=== PATIENT | female | born 1985 | race Two or more races ===

== ENCOUNTER 2016-06-16 09:29 | Emergency (ER) | payer OTHER, BC ==
--- NOTE | 2016-06-16 11:06 | EDDOCDS ---
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 Suicide/Homicide risk assessment- the patient denies having any suicidal and/or homicidal ideations and does not present with any other emotional, behavioral or mental health complaints. Status: Patient is not a vice president of customer service or dependent. Transition of care: patient was not received from another setting of care. Care prior to arrival: See EMS report. Splint applied. 09:33 Acuity: PEDRO Level 4 [facility] 09:33 Method Of Arrival: Ambulance [facility] 11:04 Adult Sepsis Screening: The patient does not have new or worsening altered mentation. js13 Patient's respiratory rate is less than 22. Systolic blood pressure is greater than 100. Patient has a qSOFA score of 0- Negative Sepsis Screen. Triage Assessment: 09:36 General: Appears in no apparent distress, comfortable, Behavior is appropriate for age, js13 cooperative. Pain: Location: left knee Pain currently is 6 out of 10 on a pain scale. Pt Declines HIV testing. Neurological: Level of Consciousness is awake, alert. Respiratory: No deficits noted. Airway is patent Respiratory effort is even, unlabored, Respiratory pattern is regular, symmetrical. Derm: Skin is pink, warm & dry. Musculoskeletal: Circulation, motion, and sensation intact No deformity noted Swelling absent. 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 none - PMHx: none; - PSHx: R foot partially amputated from lawnmower accident age 3; breast augmentation w/implants; - Social history: Smoking status: Patient states was never smoker of tobacco. No barriers to communication noted, The patient speaks fluent [place] Island[place]. - Family history: Not pertinent. - : The pt / caregiver states he / she is not on anticoagulants. Home medication list is obtained from the patient. - Exposure Risk Screening:: None identified. Screenin:37 Screening information is obtained from the patient. Fall risk: No risks identified. js13 Assistance ADL's: requires no assistance with activities of daily living. Abuse/DV Screen: The patient / caregiver reports he/she is: not in a situation that causes fear, pain or injury. Nutritional screening: No deficits noted. Advance Directives: There is no active DNR order. home support is adequate. Assessment: 11:03 General: Appears in no apparent distress, comfortable, Behavior is appropriate for age, js13 cooperative. Pain: Location: left knee Pain currently is 4 out of 10 on a pain scale. Neurological: Level of Consciousness is awake, alert. Respiratory: Airway is patent Respiratory effort is even, unlabored, Respiratory pattern is regular. Derm: Skin is pink, warm & dry. Vital Signs: 09:36 BP 149 / 71; Pulse 93; Resp 18; Temp 97.1; Pulse Ox 99% on R/A; Weight 104.33 kg; pml Height 5 ft. 9 in. (175.26 cm); Pain 6/10; 10:49 BP 113 / 66 RA Sitting (auto/lg); Pulse 67; Resp 18; Temp 98.5(O); Pulse Ox 98% on R/A; rs6 Pain 5/10; 09:36 Body Mass Index 33.96 (104.33 kg, 175.26 cm) pml Vitals: 09:36 Log In Time N/A - ambulance arrival. pml 09:36 Log In Time N/A - ambulance arrival. js13 ED Course: 09:29 Patient visited by Lisbet Estrada, Merchandising Intern. lbd 09:29 Patient moved to Waiting lbd 09:30 Brigid Gonzalez MD is Private Physician. lbd 09:30 Patient moved to I1 / M1 srm 09:33 [facility] is [facility]. btw 09:33 Mic Forde MD is Attending Physician. btw 09:33 Patient visited by Fede Pandey PA. btw 09:35 Triage Initiated js13 09:37 The patient / caregiver is instructed regarding the plan of care and ED course. js13 09:37 No IV's were initiated during this patient's visit. No procedures done that require js13 assistance. 09:38 Patient visited by Erika Tran RN. js13 09:59 Patient name changed from Deidrea\\S\\F\\S\\Raymond\\S\\ to Deidrea\\S\\Leny\\S\\Raymond. EDMS 10:01 [facility] Payment Agreement was scanned into [employer] and attached to record. lg 10:49 Knee immobilizer applied on left knee. Patient with positive distal sensation and brisk rs6 distal capillary refill after application. 10:50 Patient visited by Rufina Oates PCA. rs6 [facility] btw 11:03 Crutch training done. Knee immobilizer applied on left knee. Patient with positive js13 distal sensation and brisk distal capillary refill after application. Order Results: There are currently no results for this order. Outcome: 10:57 Discharge ordered by Provider. btw 11:03 Discharge Assessment: Patient awake, alert and oriented x 3. No cognitive and/or js13 functional deficits noted. Patient verbalized understanding of disposition instructions. patient administered narcotics - no. The following High Risk Discharge criteria are identified: None. Discharged to home ambulatory, with crutches, with family. Condition: stable. Discharge instructions given to patient, Instructed on discharge instructions, follow up and referral plans. medication usage, Rest, Ice, Compression and Elevation. crutch walking, Demonstrated understanding of instructions, crutch walking, medications, Pt was receptive of discharge instructions/ teaching. No special radiology studies were completed. Property :Personal belongings accompany Pt. 11:04 Patient left the ED. js13 Signatures: Dispatcher [employer] EDMS Lisbet Estrada, Merchandising Intern Unit lbd Carolina Pickett, RN LAUREN [facility] Megan Richardson, Reg Reg lg Fede Pandey PA PA btw Aleena Brown RN RN pml Sullivan, Jennifer, RN RN js Rufina Oates PCA PCA rs6 MTDD
--- NOTE | 2016-06-16 11:06 | EDDOCDS ---
Physician Documentation [facility] Name: Andreas Raymond Age: 30 yrs Sex: Female : 1985 Arrival Date: 06/16/2016 Time: 09:29 Bed I1 / M1 Private MD: Brigid Gonzalez Disposition: 06/16/16 10:57 Discharged to Home/Self Care. Impression: Sprain of other specified parts of left knee. - Condition is Stable. - Discharge Instructions: Knee Sprain, [id number]. - Medication Reconciliation, Local Pharmacy Hours form. - Follow up: Orthopaedics, [facility]; When: Call to arrange an appointment; Reason: Further diagnostic work-up, Recheck today's complaints, Continuance of care. - Problem is new. - Symptoms are unchanged. Historical: - Allergies: No known drug Allergies; - Home Meds: 1. none - PMHx: none; - PSHx: R foot partially amputated from lawnmower accident age 3; breast augmentation w/implants; - Social history: Smoking status: Patient states was never smoker of tobacco. No barriers to communication noted, The patient speaks fluent Grenadian. - Family history: Not pertinent. - : The pt / caregiver states he / she is not on anticoagulants. Home medication list is obtained from the patient. - Exposure Risk Screening:: None identified. 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 9 in. (175.26 cm); Pain 6/10; 10:49 BP 113 / 66 RA Sitting (auto/lg); Pulse 67; Resp 18; Temp 98.5(O); Pulse Ox 98% on R/A; rs6 Pain 5/10; 09:36 Body Mass Index 33.96 (104.33 kg, 175.26 cm) pml MDM: 09:38 Knee, Complete Ordered. EDMS 09:49 Financial registration complete. lg 10:01 [facility] Payment Agreement was scanned into [employer] and attached to record. lg 10:38 Knee Immobilizer ordered. btw 10:38 Crutches ordered. btw Signatures: Dispatcher [employer] EDMegan Taylor, Reg Reg lg Fede Pandey PA PA btw Erika Tran RN RN js13 The chart was reviewed and I authenticate all verbal orders and agree with the evaluation and treatment provided.Attachments: 10:01 [facility] Payment Agreement lg MTDD
--- NOTE | 2016-06-16 11:06 | REP ---
LEFT KNEE, FIVE VIEWS: HISTORY: Trauma. COMPARISON: 01/14/2016. There is no acute fracture or dislocation. The joint spaces are normal in appearance. IMPRESSION: There is no acute fracture or dislocation. Signed by Nikhil Jacobson MD 06/16/2016 11:26 A
--- NOTE | 2016-06-18 12:06 | EDDOCDS ---
Physician Documentation [facility] Name: Andreas Raymond Age: 30 yrs Sex: Female : 1985 Arrival Date: 06/16/2016 Time: 09:29 Bed I1 / M1 Private MD: Brigid Gonzalez Disposition: 06/16/16 10:57 Discharged to Home/Self Care. Impression: Sprain of other specified parts of left knee. - Condition is Stable. - Discharge Instructions: Knee Sprain, [id number]. - Medication Reconciliation, Local Pharmacy Hours form. - Follow up: Orthopaedics, [facility]; When: Call to arrange an appointment; Reason: Further diagnostic work-up, Recheck today's complaints, Continuance of care. - Problem is new. - Symptoms are unchanged. Historical: - Allergies: No known drug Allergies; - Home Meds: 1. none - PMHx: none; - PSHx: R foot partially amputated from lawnmower accident age 3; breast augmentation w/implants; - Social history: Smoking status: Patient states was never smoker of tobacco. No barriers to communication noted, The patient speaks fluent Canadian. - Family history: Not pertinent. - : The pt / caregiver states he / she is not on anticoagulants. Home medication list is obtained from the patient. - Exposure Risk Screening:: None identified. RAILROAD AUDITOR: 06/16 09:36 LMP 06/09/2016 pml 09:36 LMP 06/14/2015 js13 Vital Signs: 09:36 BP 149 / 71; Pulse 93; Resp 18; Temp 97.1; Pulse Ox 99% on R/A; Weight 104.33 kg / pml 230.01 lbs; Height 5 ft. 9 in. (175.26 cm); Pain 6/10; 10:49 BP 113 / 66 RA Sitting (auto/lg); Pulse 67; Resp 18; Temp 98.5(O); Pulse Ox 98% on R/A; rs6 Pain 5/10; 09:36 Body Mass Index 33.96 (104.33 kg, 175.26 cm) pml MDM: 09:38 Knee, Complete Ordered. EDMS 09:49 Financial registration complete. lg 10:01 [facility] Payment Agreement was scanned into [employer] and attached to record. lg 10:38 Knee Immobilizer ordered. btw 10:38 Crutches ordered. btw 06/17 09:36 T-Sheet-- Draft Copy was scanned into [employer] and attached to record. gb Signatures: Dispatcher [employer] EDMS Jacklyn Walter, Reg Reg gb Megan Richardson, Reg Reg lg Fede Pandey PA PA btw Erika Tran,RN RN js13 The chart was reviewed and I authenticate all verbal orders and agree with the evaluation and treatment provided.Attachments: 06/16 10:01 [facility] Payment Agreement lg 06/17 09:36 T-Sheet-- Draft Copy gb Chart Complete MTDD
--- NOTE | 2016-06-18 12:06 | EDDOCDS ---
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 and js13 slipped and felt a "pop" in left knee. Suicide/Homicide risk assessment- the patient denies having any suicidal and/or homicidal ideations and does not present with any other emotional, behavioral or mental health complaints. Status: Patient is not a conference services coordinator or dependent. Transition of care: patient was not received from another setting of care. Care prior to arrival: See EMS report. Splint applied. 09:33 Acuity: PEDRO Level 4 [facility] 09:33 Method Of Arrival: Ambulance [facility] 11:04 Adult Sepsis Screening: The patient does not have new or worsening altered mentation. js13 Patient's respiratory rate is less than 22. Systolic blood pressure is greater than 100. Patient has a qSOFA score of 0- Negative Sepsis Screen. Triage Assessment: 09:36 General: Appears in no apparent distress, comfortable, Behavior is appropriate for age, js13 cooperative. Pain: Location: left knee Pain currently is 6 out of 10 on a pain scale. Pt Declines HIV testing. Neurological: Level of Consciousness is awake, alert. Respiratory: No deficits noted. Airway is patent Respiratory effort is even, unlabored, Respiratory pattern is regular, symmetrical. Derm: Skin is pink, warm & dry. Musculoskeletal: Circulation, motion, and sensation intact No deformity noted Swelling absent. 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 none - PMHx: none; - PSHx: R foot partially amputated from lawnmower accident age 3; breast augmentation w/implants; - Social history: Smoking status: Patient states was never smoker of tobacco. No barriers to communication noted, The patient speaks fluent Romanian. - Family history: Not pertinent. - : The pt / caregiver states he / she is not on anticoagulants. Home medication list is obtained from the patient. - Exposure Risk Screening:: None identified. Screenin:37 Screening information is obtained from the patient. Fall risk: No risks identified. js13 Assistance ADL's: requires no assistance with activities of daily living. Abuse/DV Screen: The patient / caregiver reports he/she is: not in a situation that causes fear, pain or injury. Nutritional screening: No deficits noted. Advance Directives: There is no active DNR order. home support is adequate. Assessment: 11:03 General: Appears in no apparent distress, comfortable, Behavior is appropriate for age, js13 cooperative. Pain: Location: left knee Pain currently is 4 out of 10 on a pain scale. Neurological: Level of Consciousness is awake, alert. Respiratory: Airway is patent Respiratory effort is even, unlabored, Respiratory pattern is regular. Derm: Skin is pink, warm & dry. Vital Signs: 09:36 BP 149 / 71; Pulse 93; Resp 18; Temp 97.1; Pulse Ox 99% on R/A; Weight 104.33 kg; pml Height 5 ft. 9 in. (175.26 cm); Pain 6/10; 10:49 BP 113 / 66 RA Sitting (auto/lg); Pulse 67; Resp 18; Temp 98.5(O); Pulse Ox 98% on R/A; rs6 Pain 5/10; 09:36 Body Mass Index 33.96 (104.33 kg, 175.26 cm) pml Vitals: 09:36 Log In Time N/A - ambulance arrival. pml 09:36 Log In Time N/A - ambulance arrival. js13 ED Course: 09:29 Patient visited by Lisbet Estrada, Technology Specialist. lbd 09:29 Patient moved to Waiting lbd 09:30 Brigid Gonzalez MD is Private Physician. lbd 09:30 Patient moved to I1 / M1 srm 09:33 [facility]. btw 09:33 Mic Forde MD is Attending Physician. btw 09:33 Patient visited by Fede Pandey PA. btw 09:35 Triage Initiated js13 09:37 The patient / caregiver is instructed regarding the plan of care and ED course. js13 09:37 No IV's were initiated during this patient's visit. No procedures done that require js13 assistance. 09:38 Patient visited by Erika Tran RN. js13 09:59 Patient name changed from Deherlindarea\\S\\F\\S\\Raymond\\S\\ to Deidrea\\S\\Leny\\S\\Raymond. EDMS 10:01 [facility] Payment Agreement was scanned into [employer] and attached to record. lg 10:49 Knee immobilizer applied on left knee. Patient with positive distal sensation and brisk rs6 distal capillary refill after application. 10:50 Patient visited by Rufina Oates PCA. rs6 10:[facility]. btw 11:03 Crutch training done. Knee immobilizer applied on left knee. Patient with positive js13 distal sensation and brisk distal capillary refill after application. 11:14 Knee, Complete Returned. EDMS 06/17 09:36 T-Sheet-- Draft Copy was scanned into [employer] and attached to record. gb Order Results: Radiology Order: Knee, Complete Test: Knee, Complete REASON FOR EXAMINATION: Trauma; LEFT KNEE, FIVE VIEWS:; ; HISTORY: Trauma.; ; COMPARISON: 01/14/2016.; ; There is no acute fracture or dislocation. The joint spaces are normal in; appearance.; ; IMPRESSION:; ; There is no acute fracture or dislocation.; ; ; Signed by; Nikhil Jacobson MD 06/16/2016 11:26 A; Outcome: 06/16 10:57 Discharge ordered by Provider. btw 11:03 Discharge Assessment: Patient awake, alert and oriented x 3. No cognitive and/or js13 functional deficits noted. Patient verbalized understanding of disposition instructions. patient administered narcotics - no. The following High Risk Discharge criteria are identified: None. Discharged to home ambulatory, with crutches, with family. Condition: stable. Discharge instructions given to patient, Instructed on discharge instructions, follow up and referral plans. medication usage, Rest, Ice, Compression and Elevation. crutch walking, Demonstrated understanding of instructions, crutch walking, medications, Pt was receptive of discharge instructions/ teaching. No special radiology studies were completed. Property :Personal belongings accompany Pt. 11:04 Patient left the ED. js13 Signatures: Dispatcher [employer] EDNV Lisbet Estrada, Technology Specialist Unit lbd Carolina Pickett RN RN srm Barnhardt, Gloria, Reg Reg gb Megan Richardson, Reg Reg lg Fede Pandey PA PA btw Aleena Brown,RN RN Erika So,RN RN js13 Lashon, Rufina, GEAR CUTTING MACHINE SET UP OPERATOR GEAR CUTTING MACHINE SET UP OPERATOR rs6 Chart Complete MTDD
--- NOTE | 2016-06-18 12:06 | EDDOCDS ---
Physician Documentation [facility] Name: Andreas Raymond Age: 30 yrs Sex: Female : 1985 Arrival Date: 06/16/2016 Time: 09:29 Bed I1 / M1 Private MD: Brigid Gonzalez Disposition: 06/16/16 10:57 Discharged to Home/Self Care. Impression: Sprain of other specified parts of left knee. - Condition is Stable. - Discharge Instructions: Knee Sprain, [id number]. - Medication Reconciliation, Local Pharmacy Hours form. - Follow up: Orthopaedics, [facility]; When: Call to arrange an appointment; Reason: Further diagnostic work-up, Recheck today's complaints, Continuance of care. - Problem is new. - Symptoms are unchanged. Historical: - Allergies: No known drug Allergies; - Home Meds: 1. none - PMHx: none; - PSHx: R foot partially amputated from lawnmower accident age 3; breast augmentation w/implants; - Social history: Smoking status: Patient states was never smoker of tobacco. No barriers to communication noted, The patient speaks fluent Prydeinig. - Family history: Not pertinent. - : The pt / caregiver states he / she is not on anticoagulants. Home medication list is obtained from the patient. - Exposure Risk Screening:: None identified. 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 9 in. (175.26 cm); Pain 6/10; 10:49 BP 113 / 66 RA Sitting (auto/lg); Pulse 67; Resp 18; Temp 98.5(O); Pulse Ox 98% on R/A; rs6 Pain 5/10; 09:36 Body Mass Index 33.96 (104.33 kg, 175.26 cm) pml MDM: 09:38 Knee, Complete Ordered. EDMS 09:49 Financial registration complete. lg 10:01 [facility] Payment Agreement was scanned into [employer] and attached to record. lg 10:38 Knee Immobilizer ordered. btw 10:38 Crutches ordered. btw 06/17 09:36 T-Sheet-- Draft Copy was scanned into [employer] and attached to record. gb Signatures: Dispatcher [employer] EDMS Jacklyn Walter, Reg Reg gb Megan Richarsdon, Reg Reg lg Fede Pandey PA PA btw Erika Tran,RN RN js13 The chart was reviewed and I authenticate all verbal orders and agree with the evaluation and treatment provided.Attachments: 06/16 10:01 [facility] Payment Agreement lg 06/17 09:36 T-Sheet-- Draft Copy gb Chart Complete MTDD
== END 2016-06-16 11:04 | disposition home or self-care (01) ==
LOC: M ED 09:29
DX: S83.92XA Sprain of unspecified site of left knee, initial encounter (principal); W00.9XXA Unspecified fall due to ice and snow, initial encounter; Y92.9 Unspecified place or not applicable; Y93.9 Activity, unspecified; Y99.0 Civilian activity done for income or pay

== ENCOUNTER → 2016-07-16 | Outpatient (REF) | payer OTHER, BC | LOC: M LAB REF 09:38 | PROVIDERS: ATTEND Physician Assistant | DX: N39.0 Urinary tract infection, site not specified (principal) ==

== ENCOUNTER → 2016-11-08 | Outpatient (CLI) | payer OTHER, BC ==
[2016-11-08 13:38] LABS: BASO # 0.1 K/mm3 (0.0-0.2); BASO % 0.6 % (0.0-1.0); EOS # 0.2 K/mm3 (0.0-0.50); EOS % 2.2 % (0.0-3.0); LARGE UNSTAINED CELL # 0.1 K/mm3 (0.0-0.4); LYMPH # 1.8 K/mm3 (1.5-4.5); LYMPH % 17.5 % (24.0-44.0); MEAN CORPUSCULAR HEMOGLOBIN 30.7 pg (27.0-33.0); MEAN CORPUSCULAR HGB CONC 33.8 g/dl (32.0-36.5); MEAN CORPUSCULAR VOLUME 90.6 fl (80.0-96.0); MONO # 0.6 K/mm3 (0.0-0.8); MONO % 5.5 % (0.0-5.0); NEUTROPHILS # 7.4 K/mm3 (1.8-7.7); NEUTROPHILS % 73.2 % (36.0-66.0); PLATELET COUNT, AUTOMATED 312 k/mm3 (150-450); RED CELL DISTRIBUTION WIDTH 12.6 % (11.5-14.5); WHITE BLOOD COUNT 10.1 K/mm3 (4.0-10.0)
[2016-11-08 13:44] LABS: ANION GAP 6 MEQ/L (8-16); BLOOD UREA NITROGEN 9 MG/DL (7-18); CALCIUM LEVEL 9.6 MG/DL (8.5-10.1); CARBON DIOXIDE LEVEL 30 MEQ/L (21-32); CHLORIDE LEVEL 106 MEQ/L (98-107); CREATININE FOR GFR 0.79 MG/DL (0.55-1.02); FREE T4 1.19 NG/DL (0.76-1.46); GLOMERULAR FILTRATION RATE > 60.0 (>60); GLUCOSE, FASTING 78 MG/DL (70-105); PERCENT SATURATION 16.5 % (13.2-37.4); POTASSIUM SERUM 4.3 MEQ/L (3.5-5.1); SODIUM LEVEL 142 MEQ/L (136-145); TOTAL IRON BINDING CAPACITY 370 UG/DL (250-450)
== END ==
LOC: M WUC 08:52
PROVIDERS: ATTEND Physician Assistant
DX: R53.83 Other fatigue (principal)

== ENCOUNTER → 2016-12-07 | Outpatient (REF) | payer OTHER, BC | LOC: M LAB REF 09:37 | PROVIDERS: ATTEND Physician Assistant | DX: J02.9 Acute pharyngitis, unspecified (principal) ==

== ENCOUNTER → 2017-02-26 | Outpatient (REF) | payer OTHER, BC | LOC: M LAB REF 09:46 | PROVIDERS: ATTEND Physician Assistant | DX: N39.0 Urinary tract infection, site not specified (principal) ==

== ENCOUNTER → 2017-05-04 | Outpatient (REF) | payer OTHER, BC | LOC: M LAB REF 19:32 | PROVIDERS: ATTEND Physician Assistant Medical | DX: N30.00 Acute cystitis without hematuria (principal) ==

== ENCOUNTER → 2017-05-11 | Outpatient (CLI) | payer OTHER, BC ==
[2017-05-11 09:29] LABS: BASO # 0.1 10^3/uL (0.0-0.2); BASO % 0.7 % (0.0-1.0); EOS # 0.3 10^3/uL (0.0-0.50); EOS % 2.9 % (0.0-3.0); IMMATURE GRANULOCYTE % 0.4 % (0-0); LYMPH # 1.9 10^3/uL (1.5-4.5); LYMPH % 20.3 % (24.0-44.0); MEAN CORPUSCULAR HEMOGLOBIN 29.2 pg (27.0-33.0); MEAN CORPUSCULAR HGB CONC 32.6 g/dl (32.0-36.5); MEAN CORPUSCULAR VOLUME 89.8 fl (80.0-96.0); MONO # 0.7 10^3/uL (0.0-0.8); MONO % 7.4 % (0.0-5.0); NEUTROPHILS # 6.4 10^3/uL (1.8-7.7); NEUTROPHILS % 68.3 % (36.0-66.0); PLATELET COUNT, AUTOMATED 422 10^3/uL (150-450); RED CELL DISTRIBUTION WIDTH 13.2 % (11.5-14.5); WHITE BLOOD COUNT 9.4 10^3/uL (4.0-10.0)
[2017-05-11 10:07] LABS: ERYTHROCYTE SEDIMENTATION RATE 22 mm/hr (0-20)
[2017-05-11 11:01] LABS: ANION GAP 6 MEQ/L (8-16); BLOOD UREA NITROGEN 10 MG/DL (7-18); CALCIUM LEVEL 9.2 MG/DL (8.5-10.1); CARBON DIOXIDE LEVEL 32 MEQ/L (21-32); CHLORIDE LEVEL 104 MEQ/L (98-107); CREATININE FOR GFR 0.72 MG/DL (0.55-1.02); GLOMERULAR FILTRATION RATE > 60.0 (>60); GLUCOSE, FASTING 84 MG/DL (70-105); POTASSIUM SERUM 4.2 MEQ/L (3.5-5.1); SODIUM LEVEL 142 MEQ/L (136-145)
[2017-05-15 00:08] LABS: Lyme Disease IgG Ab 18 kDa Ban Absent (.); Lyme Disease IgG Ab 23 kDa Ban Absent (.); Lyme Disease IgG Ab 28 kDa Ban Absent (.); Lyme Disease IgG Ab 30 kDa Ban Absent (.); Lyme Disease IgG Ab 39 kDa Ban Absent (.); Lyme Disease IgG Ab 41 kDa Ban Absent (.); Lyme Disease IgG Ab 45 kDa Ban Absent (.); Lyme Disease IgG Ab 58 kDa Ban Absent (.); Lyme Disease IgG Ab 66 kDa Ban Absent (.); Lyme Disease IgG Ab 93 kDa Ban Absent (.); Lyme Disease IgG West Blot Int Negative (.); Lyme Disease IgG/IgM Antibodie <0.91 ISR (0.00-0.90); Lyme Disease IgM Ab 23 kDa Ban Absent (.); Lyme Disease IgM Ab 39 kDa Ban Absent (.); Lyme Disease IgM Ab 41 kDa Ban Absent (.); Lyme Disease IgM Ab Quantitati 0.86 index (0.00-0.79); Lyme Disease IgM West Blot Int Negative (.)
== END ==
LOC: M WUC 08:18
PROVIDERS: ATTEND Physician Assistant Medical
DX: M25.50 Pain in unspecified joint (principal)

== ENCOUNTER → 2017-07-13 | Outpatient (CLI) | payer OTHER, BC | LOC: M WUC 16:17 | DX: M54.5 Low back pain (principal); M25.551 Pain in right hip | CPT/HCPCS: 72110 ==

== ENCOUNTER → 2017-07-31 | Outpatient (REF) | payer OTHER, BC | LOC: M LAB REF 14:41 | DX: Z01.419 Encounter for gynecological examination (general) (routine) without abnormal findings (principal) ==

== ENCOUNTER → 2017-08-23 | Outpatient (REF) | payer OTHER, BC | LOC: M LAB REF 19:17 | DX: N39.0 Urinary tract infection, site not specified (principal) ==

== ENCOUNTER → 2018-01-06 | Outpatient (CLI) | payer OTHER, BC | LOC: M WUC 10:31 | DX: M25.531 Pain in right wrist (principal) | CPT/HCPCS: 73110 ==

== ENCOUNTER → 2018-02-05 | Outpatient (REF) | payer OTHER, BC | LOC: M LAB REF 12:38 | DX: N39.0 Urinary tract infection, site not specified (principal) ==

== ENCOUNTER → 2018-02-26 | Outpatient (REF) | payer BC | LOC: M LAB REF 11:50 | DX: M54.5 Low back pain (principal) | CPT/HCPCS: 87086 ==

== ENCOUNTER → 2018-05-21 | Outpatient (CLI) | payer BC ==
[2018-05-21 13:08] LABS: GLUCOSE, FASTING 91 MG/DL (70-100)
[2018-05-21 13:09] LABS: LUTEINIZING HORMONE 50.6 mIU/mL; PROLACTIN 12.9 NG/ML
[2018-05-21 13:10] LABS: FOLLICLE STIMULATING HORMONE 10.7 mIU/mL
[2018-05-21 13:44] LABS: CONTROL LINE HCG INT CTR LINE PRESENT; HCG, SERUM QUALITATIVE NEGATIVE (NEGATIVE)
[2018-05-25 08:06] LABS: 17 HYDROXY PROGESTERONE 113 ng/dL (.); DEHYDROEPIANDROSTERONE SULFATE 407.9 ug/dL (84.8-378.0); INSULIN FREE 17 uU/mL (.); INSULIN TOTAL2 17 uU/mL (.)
== END ==
LOC: M WUC 08:40
DX: L68.0 Hirsutism (principal)
CPT/HCPCS: 83001

== ENCOUNTER → 2018-07-21 | Outpatient (REF) | payer BC | LOC: M LAB REF 18:21 | PROVIDERS: ATTEND Physician Assistant Medical | DX: J02.9 Acute pharyngitis, unspecified (principal) ==

== ENCOUNTER 2018-10-08 07:59 | Emergency (ER) | payer BC ==
[~2018-10-08] VITALS: Ht 175.3 cm; Wt 122.8 kg
[2018-10-08] MEDS ORDERED: SERT-155 (08:07)
--- NOTE | 2018-10-08 09:09 | REP ---
Right lower extremity Duplex Doppler venous ultrasound: Real time compression and duplex Doppler interrogation of the right lower extremity deep venous system is performed. The right common femoral, superficial femoral and popliteal veins are fully compressible with transducer pressure and demonstrate normal spontaneous and phasic flow, without evidence of deep venous thrombosis. Impression: No evidence of deep venous thrombosis of the right lower extremity femoral popliteal venous system. Electronically Signed by Jung Joshi MD 10/08/2018 09:00 A
[2018-10-08] MEDS ORDERED: PYRI1TAB5 PO (09:12)
[2018-10-08] MEDS ORDERED: CYCL10TA PO (09:12)
[2018-10-08] MEDS ORDERED: CIPR-249 PO (09:12)
[2018-10-08] MEDS ORDERED: MOBI4TAB PO (09:12)
[2018-10-08] MEDS ORDERED: NITROFURANTOIN (MACROBID) 100 MG CAP PO ONE (09:15)
[2018-10-08] MEDS ORDERED: CIPROFLOXACIN 500 MG TAB PO ONE (09:15)
[2018-10-08] MEDS ORDERED: PHENAZOPYRIDINE 100 MG TAB PO ONE (09:15)
[2018-10-08 09:17] VITALS: BP 139/82
== END 2018-10-08 09:21 | disposition home or self-care (01) ==
LOC: M ED 07:59
DX: M79.661 Pain in right lower leg (principal); N39.0 Urinary tract infection, site not specified; Z79.899 Other long term (current) drug therapy

== ENCOUNTER → 2019-05-13 | Outpatient (REF) | payer BC ==
[~2019-05-13] MED LIST: CIPR-249 PO; CYCL10TA PO; MOBI4TAB PO; PYRI1TAB5 PO; SERT50TA29
== END ==
LOC: M LAB REF 12:59
PROVIDERS: ATTEND Family Medicine
DX: R35.0 Frequency of micturition (principal)

== ENCOUNTER → 2019-05-26 | Outpatient (REF) | payer BC ==
[2019-05-26 13:35] LABS: AMORPHOUS SEDIMENT MODERATE (NEGATIVE); APPEARANCE, URINE CLOUDY (CLEAR); BACTERIA, URINE AUTO 1+ (NEGATIVE); BILIRUBIN, URINE AUTO NEGATIVE (NEGATIVE); BLOOD, URINE BLOOD NEGATIVE (NEGATIVE); CALCIUM OXALATE CRYSTALS LARGE; COLOR, URINE AMBER (YELLOW); GLUCOSE, URINE (UA) AUTO NEGATIVE (NEGATIVE); KETONE, URINE AUTO NEGATIVE (NEGATIVE); LEUKOCYTE ESTERASE, URINE AUTO 1+ (NEGATIVE); MUCUS, URINE SMALL (NEGATIVE); NITRITE, URINE AUTO POSITIVE (NEGATIVE); PROTEIN, URINE AUTO NEGATIVE (NEGATIVE); RBC, URINE AUTO 4 /HPF (0-3); SPECIFIC GRAVITY URINE AUTO 1.028 (1.002-1.035); SQUAMOUS EPITHELIAL CELL UR AU 10 /HPF (0-6); WBC, URINE AUTO 24 /HPF (0-3)
== END ==
LOC: M LAB REF 12:58
PROVIDERS: ATTEND Physician Assistant Medical
DX: N39.0 Urinary tract infection, site not specified (principal)

== ENCOUNTER → 2019-06-27 | Outpatient (REF) | payer BC | LOC: M LAB REF 12:58 | PROVIDERS: ATTEND Nurse Practitioner Family | DX: N39.0 Urinary tract infection, site not specified (principal) ==

== ENCOUNTER → 2019-11-20 | Outpatient (REF) | payer BC ==
[~2019-11-20] MED LIST changes: +CYCL-707 PO; -CYCL10TA PO
== END ==
LOC: M LAB REF 16:44
PROVIDERS: ATTEND Internal Medicine Endocrinology, Diabetes & Metabolism
DX: E04.1 Nontoxic single thyroid nodule (principal)

== ENCOUNTER 2020-01-31 18:09 | Emergency (ER) | payer BC ==
[~2020-01-31] VITALS: Ht 175.3 cm; Wt 112.0 kg
[2020-01-31] MEDS ORDERED: ACET-683 PO (18:17)
[2020-01-31 19:19] LABS: BASO # 0.1 10^3/uL (0.0-0.2); BASO % 0.8 % (0.0-1.0); EOS # 0.2 10^3/uL (0.0-0.5); HEMATOCRIT 43.1 % (36.0-47.0); HEMOGLOBIN 14.5 g/dl (12.0-15.5); LYMPH # 2.9 10^3/uL (1.5-5.0); LYMPH % 25.2 % (24.0-44.0); MEAN CORPUSCULAR HEMOGLOBIN 30.1 pg (27.0-33.0); MEAN CORPUSCULAR HGB CONC 33.6 g/dl (32.0-36.5); MEAN CORPUSCULAR VOLUME 89.4 fl (80.0-96.0); MONO # 0.9 10^3/uL (0.0-0.8); MONO % 8.3 % (0.0-5.0); NEUTROPHILS # 7.2 10^3/uL (1.5-8.5); NEUTROPHILS % 63.4 % (36.0-66.0); PLATELET COUNT, AUTOMATED 381 10^3/uL (150-450); RED BLOOD COUNT 4.82 10^6/uL (4.00-5.40); WHITE BLOOD COUNT 11.3 10^3/uL (4.0-10.0)
[2020-01-31] MEDS ORDERED: ISOVUE-370 76% 100ML VIAL As Ordered ONE (19:48)
[2020-01-31 19:51] LABS: ALBUMIN 3.7 GM/DL (3.2-5.2); ALT/SGPT 22 U/L (12-78); BILIRUBIN,DIRECT < 0.1 MG/DL (0.0-0.2); BILIRUBIN,TOTAL 0.4 MG/DL (0.2-1.0); LIPASE 90 U/L (73-393); TOTAL PROTEIN 7.7 GM/DL (6.4-8.2)
--- NOTE | 2020-01-31 20:43 | REPVR ---
PROCEDURE INFORMATION: Exam: CT Abdomen And Pelvis With Contrast Exam date and time: 01/31/2020 8:07 PM Age: 34 years old Clinical indication: Abdominal pain; Localized; Right lower quadrant (rlq); Additional info: Rlq pain R/O appendicitis TECHNIQUE: Imaging protocol: Computed tomography of the abdomen and pelvis with intravenous contrast. Radiation optimization: All CT scans at this facility use at least one of these dose optimization techniques: automated exposure control; mA and/or kV adjustment per patient size (includes targeted exams where dose is matched to clinical indication); or iterative reconstruction. Contrast material: ISOVUE 370; Contrast volume: 100 ml; Contrast route: INTRAVENOUS (IV); COMPARISON: CR Pelvis, complete 11/16/2013 9:27 PM FINDINGS: Lungs: No suspicious mass or airspace process in the visualized lung bases. Mediastinal space: Small hiatal hernia is present. Liver: Liver appears normal with no focal abnormality. Gallbladder and bile ducts: Gallbladder is present and shows no evidence of gallstone. Pancreas: Pancreas appears normal. No focal mass or peripancreatic inflammation. Spleen: Spleen appears homogeneous without focal mass. Adrenals: Left adrenal is normal in size. Right adrenal demonstrates a benign 13 mm fat containing adenoma. Kidneys and ureters: Kidneys appear normal, with no stone, solid mass or hydronephrosis. Stomach and bowel: No evidence of small bowel obstruction. Terminal ileum has normal appearance. No evidence of acute diverticulitis. Appendix: Normal-appearing retrocecal appendix is identified, without inflammation. Intraperitoneal space: No pneumoperitoneum. Vasculature: No aortic aneurysm. Main portal and splenic veins enhance normally. Lymph nodes: No enlarged lymph nodes. Bladder: Urinary bladder appears normal. Reproductive: Left ovarian 5 cm fat containing mature cystic teratoma is present. Right ovarian cyst measuring 15 mm. Bones/joints: Bony structures show no acute fracture or destructive process. Soft tissues: Bilateral breast implants are present. No effacement of normal fat planes in the ischiorectal fossa. IMPRESSION: 1. Normal retrocecal appendix. No evidence of acute appendicitis. No explanation for acute right lower quadrant pain. Small 15 mm right ovarian cyst is of functional size and likely incidental 2. 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 No evidence of rupture. 3. Prominent colonic stool, particularly on the right side suggesting perhaps mild constipation without rectal fecal impaction Electronically signed by: Geronimo Rai On 01/31/2020 20:43:40 PM
--- NOTE | 2020-01-31 21:33 | REPVR ---
PROCEDURE INFORMATION: Exam: US Nonobstetric Pelvis; Complete Exam date and time: 01/31/2020 9:05 PM Age: 34 years old Clinical indication: Pain and abnormal findings; Mass/lesion; Lower quadrant, left; Pelvic pain; Additional info: Left ovarian cyst on CT, R/O torsion TECHNIQUE: Imaging protocol: Transabdominal pelvic nonobstetric ultrasound. Complete exam. Real time ultrasound with image documentation. COMPARISON: CT ABD/PEL W/IV CONTRAST ONLY 01/31/2020 7:58 PM FINDINGS: Uterus measures 9.5 x 4.8 x 6.1 cm in size, anteverted in position. No focal uterine mass. Endometrial stripe appears homogeneous, measuring 18 mm in thickness. Right ovary measures 3.1 x 2.3 x 3.4 cm in size. 19 mm follicle or cyst. Left ovary measures 5.6 x 5.4 x 4.7 cm in size. Mature cystic teratoma 5.6 x 5.4 x 4.7 cm. Doppler flow is documented in both ovaries. No abnormal volume of free fluid within the pelvis. 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 No evidence of torsion. Incidental 19 mm right ovarian cyst/follicle, also described on CT. No evidence of torsion. Prominent endometrium, likely related to menstrual phase. Electronically signed by: Geronimo Rai On 01/31/2020 21:33:47 PM
[2020-01-31] MEDS ORDERED: KEFL500C17 PO (21:42)
[2020-01-31 21:51] VITALS: BP 126/82
== END 2020-01-31 21:51 | disposition home or self-care (01) ==
LOC: M ED 18:09
DX: N39.0 Urinary tract infection, site not specified (principal); N83.209 Unspecified ovarian cyst, unspecified side; E04.1 Nontoxic single thyroid nodule
CPT/HCPCS: 36415; 74177; 76830; 76856; 80047; 80076; 81001; 83690; 84702; 85025; 87086; 93976; 99284; Q9967

== ENCOUNTER → 2020-05-17 | Outpatient (REF) | payer BC ==
[~2020-05-17] MED LIST changes: +ACET-683 PO; +KEFL500C17 PO
== END ==
LOC: M LAB REF 17:22
PROVIDERS: ATTEND Nurse Practitioner Family
DX: R35.0 Frequency of micturition (principal); N39.0 Urinary tract infection, site not specified

== ENCOUNTER → 2020-06-17 | Outpatient (REF) | payer BC ==
[2020-06-18 16:03] LABS: CHLAMYDIA DNA AMPLIFICATION NEGATIVE (NEGATIVE); GC DNA AMPLIFICATION NEGATIVE (NEGATIVE)
== END ==
LOC: M LAB REF 12:42
PROVIDERS: ATTEND Nurse Practitioner Family
DX: Z12.4 Encounter for screening for malignant neoplasm of cervix (principal); N76.0 Acute vaginitis; R35.0 Frequency of micturition; N39.0 Urinary tract infection, site not specified
CPT/HCPCS: 87070; 87077; 87086; 87491; 87591; 87624; G0123

== ENCOUNTER → 2020-06-25 | Outpatient (REF) | payer BC | LOC: M LAB REF 13:16 | PROVIDERS: ATTEND Nurse Practitioner Family | DX: R35.0 Frequency of micturition (principal) ==

== ENCOUNTER → 2020-07-05 | Outpatient (REF) | payer BC ==
[2020-07-05 17:00] LABS: APPEARANCE, URINE CLOUDY (CLEAR); BACTERIA, URINE AUTO NEGATIVE (NEGATIVE); BILIRUBIN, URINE AUTO NEGATIVE (NEGATIVE); BLOOD, URINE BLOOD 1+ (NEGATIVE); COLOR, URINE YELLOW (YELLOW); GLUCOSE, URINE (UA) AUTO NEGATIVE (NEGATIVE); KETONE, URINE AUTO NEGATIVE (NEGATIVE); LEUKOCYTE ESTERASE, URINE AUTO 3+ (NEGATIVE); MUCUS, URINE SMALL (NEGATIVE); NITRITE, URINE AUTO NEGATIVE (NEGATIVE); PROTEIN, URINE AUTO 1+ mg/dL (NEGATIVE); RBC, URINE AUTO 7 /HPF (0-3); SPECIFIC GRAVITY URINE AUTO 1.023 (1.002-1.035); SQUAMOUS EPITHELIAL CELL UR AU 11 /HPF (0-6); WBC, URINE AUTO 56 /HPF (0-3)
== END ==
LOC: M LAB REF 16:26
PROVIDERS: ATTEND Physician Assistant Medical
DX: N39.0 Urinary tract infection, site not specified (principal)

== ENCOUNTER → 2020-10-08 | Outpatient (REF) | payer BC ==
[2020-10-08 18:07] LABS: APPEARANCE, URINE CLOUDY (CLEAR); BACTERIA, URINE AUTO NEGATIVE (NEGATIVE); BILIRUBIN, URINE AUTO NEGATIVE (NEGATIVE); BLOOD, URINE BLOOD NEGATIVE (NEGATIVE); COLOR, URINE YELLOW (YELLOW); GLUCOSE, URINE (UA) AUTO NEGATIVE (NEGATIVE); KETONE, URINE AUTO NEGATIVE (NEGATIVE); LEUKOCYTE ESTERASE, URINE AUTO 3+ (NEGATIVE); NITRITE, URINE AUTO NEGATIVE (NEGATIVE); PROTEIN, URINE AUTO NEGATIVE (NEGATIVE); RBC, URINE AUTO 3 /HPF (0-3); SPECIFIC GRAVITY URINE AUTO 1.018 (1.002-1.035); SQUAMOUS EPITHELIAL CELL UR AU 6 /HPF (0-6); UROBILINOGEN, URINE AUTO 0.2 mg/dL (0.0-2.0); WBC, URINE AUTO 21 /HPF (0-3)
== END ==
LOC: M LAB REF 16:52
PROVIDERS: ATTEND Physician Assistant
DX: N39.0 Urinary tract infection, site not specified (principal)

== ENCOUNTER → 2020-10-25 | Outpatient (REF) | payer BC ==
[2020-10-25 18:33] LABS: BASO # 0.1 10^3/uL (0.0-0.2); BASO % 0.5 % (0.0-1.0); EOS # 0.2 10^3/uL (0.0-0.5); EOS % 1.5 % (0.0-3.0); HEMATOCRIT 44.3 % (36.0-47.0); LYMPH # 3.6 10^3/uL (1.5-5.0); MEAN CORPUSCULAR HEMOGLOBIN 29.2 pg (27.0-33.0); MEAN CORPUSCULAR HGB CONC 31.6 g/dl (32.0-36.5); MEAN CORPUSCULAR VOLUME 92.3 fl (80.0-96.0); MONO # 1.1 10^3/uL (0.0-0.8); NEUTROPHILS # 8.7 10^3/uL (1.5-8.5); NEUTROPHILS % 63.4 % (36.0-66.0); PLATELET COUNT, AUTOMATED 431 10^3/uL (150-450); WHITE BLOOD COUNT 13.8 10^3/uL (4.0-10.0)
[2020-10-25 19:06] LABS: ALBUMIN 3.5 GM/DL (3.2-5.2); ALT/SGPT 19 U/L (12-78); BILIRUBIN,TOTAL 0.3 MG/DL (0.2-1.0); BLOOD UREA NITROGEN 13 MG/DL (7-18); CALCIUM LEVEL 9.3 MG/DL (8.5-10.1); CARBON DIOXIDE LEVEL 33 MEQ/L (21-32); CHLORIDE LEVEL 107 MEQ/L (98-107); CHOLESTEROL LEVEL 197 MG/DL (<200); CHOLESTEROL RISK RATIO 3.581 (<5); FREE T4 1.25 NG/DL (0.76-1.46); GLOMERULAR FILTRATION RATE > 60.0 (>60); GLUCOSE, FASTING 89 MG/DL (70-100); HDL CHOLESTEROL 55 MG/DL (>40); LDL CHOLESTEROL 114 MG/DL (<100); NON-HDL-C 142 MG/DL; SODIUM LEVEL 141 MEQ/L (136-145); TOTAL PROTEIN 7.4 GM/DL (6.4-8.2); TRIGLYCERIDES LEVEL 142 MG/DL (<150)
== END ==
LOC: M SFHCADAM 11:55
PROVIDERS: ATTEND Physician Assistant Medical
DX: K21.9 Gastro-esophageal reflux disease without esophagitis (principal); E66.01 Morbid (severe) obesity due to excess calories; E03.9 Hypothyroidism, unspecified; D27.1 Benign neoplasm of left ovary

== ENCOUNTER → 2020-12-28 | Outpatient (CLI) | payer BC ==
--- NOTE | 2020-12-28 18:15 | REP ---
INDICATION: R KNEE PAIN COMPARISON: None. TECHNIQUE: Five views right knee. FINDINGS: There is no evidence of acute fracture, dislocation, or intrinsic bone disease.The joint spaces are unremarkable. IMPRESSION: Negative right knee series. <Electronically signed by Jung Joshi > 12/28/20 [id number]
== END ==
LOC: M RAD 17:34
PROVIDERS: ATTEND Physician Assistant Medical
DX: M25.561 Pain in right knee (principal)

== ENCOUNTER → 2021-03-09 | Outpatient (CLI) | payer BC ==
[~2021-03-09] MED LIST changes: +CETI10CH PO; +SERT50TA29 PO; +SYNT88TA2 PO
--- NOTE | 2021-03-12 10:14 | ECGEPIP ---
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 Electronically Signed on 03-12-2021 10:14:23 EDT by Aashish Billings
== END ==
LOC: M EKG 10:15
PROVIDERS: ATTEND Anesthesiology
DX: Z01.818 Encounter for other preprocedural examination (principal); E04.1 Nontoxic single thyroid nodule

== ENCOUNTER → 2021-03-09 | Outpatient (CLI) | payer BC ==
[~2021-03-09] MED LIST changes: -CETI10CH PO; -SERT50TA29 PO
== END ==
LOC: M LABSMTC 09:29
PROVIDERS: ATTEND Anesthesiology
DX: Z01.812 Encounter for preprocedural laboratory examination (principal)

== ENCOUNTER 2021-03-14 06:09 | Day surgery (SDC) | payer BC ==
[~2021-03-14] VITALS: Ht 177.8 cm; Wt 120.2 kg
[~2021-03-14 06:09] MED LIST changes: +LIDOCAINE 1% MDV 20ML VIAL SQ PRN
[2021-03-14] MEDS ORDERED: CETI10CH PO (06:39)
[2021-03-14] MEDS ORDERED: SERT50TA29 PO (06:39)
[2021-03-14 06:40] LABS: HEMOGLOBIN 13.6 g/dl (12.0-15.5); MEAN CORPUSCULAR HEMOGLOBIN 28.3 pg (27.0-33.0); MEAN CORPUSCULAR HGB CONC 32.4 g/dl (32.0-36.5); MEAN CORPUSCULAR VOLUME 87.5 fl (80.0-96.0); PLATELET COUNT, AUTOMATED 363 10^3/uL (150-450); WHITE BLOOD COUNT 9.8 10^3/uL (4.0-10.0)
[2021-03-14] MEDS ORDERED: MIDAZOLAM INJ 2MG/2ML VIAL (J2250 PER 1MG) As Ordered ONE (07:05)
[2021-03-14] MEDS ORDERED: fentaNYL 100 MCG/2 ML INJECTION (J3010) As Ordered ONE (07:06)
[2021-03-14] MEDS ORDERED: ROCURONIUM BROMIDE 50 MG/5 ML VIAL As Ordered ONE (07:07)
[2021-03-14] MEDS ORDERED: LIDOCAINE 2% 100MG/5ML SDV (FOR ANES.) As Ordered ONE (07:07)
[2021-03-14] MEDS ORDERED: ACETAMINOPHEN 1000MG 100ML IV BTL (OFIRMEV) (J0131 PER 10MG) As Ordered ONE (07:11)
[2021-03-14] MEDS ORDERED: BUPIVACAINE HCL 0.25% 30ML VIAL As Ordered ONE (07:13)
[2021-03-14] MEDS ORDERED: SCOPOLAMINE 1MG TRANSDERMAL PATCH TOP ONE (07:15)
[2021-03-14] MEDS ORDERED: LR 1,000 ML IV ONE (07:15)
[2021-03-14] MEDS ORDERED: ONDANSETRON 4MG/2ML VIAL As Ordered ONE (08:01)
[2021-03-14] MEDS ORDERED: dexameTHASONE 4 MG/ML 1ML VIAL (J1100 PER 1MG) As Ordered ONE (08:01)
[2021-03-14] MEDS ORDERED: propofoL 200 MG/20 ML VIAL As Ordered ONE (08:01)
[2021-03-14] MEDS ORDERED: KETOROLAC 60MG 2ML VIAL As Ordered ONE (08:02)
[2021-03-14] MEDS ORDERED: METOCLOPRAMIDE INJ 10MG/2ML VIAL (J2765 PER 1) As Ordered ONE (08:02)
[2021-03-14] MEDS ORDERED: GLYCOPYRROLATE INJ 0.2 MG/ML 2 ML VIAL As Ordered ONE (08:15)
[2021-03-14] MEDS ORDERED: ATROPINE SULF 0.4 MG/ML 1ML VIAL (J0461) As Ordered ONE (08:18)
[2021-03-14] MEDS ORDERED: PHENYLephrine 500MCG 5ML (100MCG/ML) SYRINGE As Ordered ONE (08:25)
[2021-03-14] MEDS ORDERED: SUGAMMADEX SODIUM 500 MG/5 ML VIAL (BRIDION) As Ordered ONE (08:39)
[2021-03-14] MEDS ORDERED: ONDANSETRON 4MG/2ML VIAL IV PRN (09:20)
[2021-03-14] MEDS ORDERED: METOCLOPRAMIDE INJ 10MG/2ML VIAL (J2765 PER 1) IV PRN (09:20)
[2021-03-14] MEDS ORDERED: oxyCODONE 5MG TAB PO PRN (09:20)
[2021-03-14] MEDS ORDERED: fentaNYL 100 MCG/2 ML INJECTION (J3010) IV PRN (09:20)
[2021-03-14] MEDS ORDERED: LR 1,000 ML IV SCH (09:20)
[2021-03-14] MEDS ORDERED: PERCOCET 5MG/325MG TAB PO PRN (09:25)
[2021-03-14 10:45] VITALS: BP 118/70
--- NOTE | 2021-03-14 14:40 | ROOPDOC ---
[facility] Report Of Operation Report of Operation DATE OF PROCEDURE: 03/14/21 PREOPERATIVE DIAGNOSIS: Left dermoid cyst. POSTOPERATIVE DIAGNOSIS: Left dermoid cyst. PROCEDURE PERFORMED: 1. Diagnostic operative laparoscopy with left salpingo-oophorectomy. SURGEON: Flora Mills MD WATER SOFTENER SERVICER AND INSTALLER: Nikhil Muniz MD ANESTHESIA: General endotracheal anesthesia. SPECIMENS: Left fallopian tube and ovary. ESTIMATED BLOOD LOSS: 5 mL. IV FLUIDS: 800 mL of Lactated Ringer's solution. URINE OUTPUT: 100 mL. OPERATIVE FINDINGS: Remarkably enlarged left ovary with dermoid cyst, approximately 8cm. Very little normal ovary identified. Normal appearing uterus and right adnexa. PREOPERATIVE ANTIBIOTICS: None. DESCRIPTION OF OPERATION: After informed consent was obtained and written consent was reviewed, the patient was brought to the operating room where she was placed under general endotracheal anesthesia. She was then placed in lithotomy position, was prepped and draped in the normal sterile fashion. A time out in the operating room was then performed identifying the patient, procedure be performed as well as drug allergies. A Varela catheter was then placed and set to gravity. Attention was then turned to the patient's abdomen where 0.25% Marcaine was infused in the umbilical region. This area was incised, an 11 mm trocar and sleeve was advanced through this incision. A laparoscope was then placed revealing intra-abdominal placement and pneumoperitoneum was then obtained with CO2 gas. Two additional port sites were placed on each side of the umbilicus. These areas were infused 0.25% Marcaine. An incision was made in each one of these areas and 5 mm trocar and sleeves was advanced through each one of these incisions under direct visualization. Next, the abdomen was then surveyed with the above noted findings. Using a Harmonic Christian scalpel device. The left fallopian tube was placed on traction and the left infundibulopelvic ligament was then cauterized and ligated using Harmonic Christian scalpel device with good hemostasis noted. Dissection was further created along the mesosalpinx releasing the adnexa. The specimen was then placed in an EndoCatch bag. Intraoperative drainage was then performed. The EndoCatch bag and specimen was removed was removed. Surgical hannon were inspected and noted be hemostatic. Instruments were then removed. The pneumoperitoneum was then released. The fascia at the umbilical port sites were closed with #0 Vicryl. The skin incisions of all three port sites were closed with #4-0 Monocryl and dressed with DERMABOND. The Varela catheter was then removed. The patient was then taken out of lithotomy position, was awakened from general anesthesia, and taken to recovery in stable condition. Counts correct. Dr. Muniz, my salesperson surgical appliances, played an essential role during the surgery. He assisted with port placement, removal of specimen and port site closures. FLORA MILLS MD. Mar 14, 2021 14:40
[2021-03-14] MEDS ORDERED: KETOROLAC 30 MG/ML 1ML VIAL IV SCH (15:00)
== END 2021-03-14 10:57 | disposition home or self-care (01) ==
LOC: M SDC 06:09
PROVIDERS: ATTEND Obstetrics & Gynecology
DX: D27.1 Benign neoplasm of left ovary (principal); D28.2 Benign neoplasm of uterine tubes and ligaments; E04.9 Nontoxic goiter, unspecified; Z90.89 Acquired absence of other organs; E89.0 Postprocedural hypothyroidism; K21.9 Gastro-esophageal reflux disease without esophagitis; Z79.899 Other long term (current) drug therapy
CPT/HCPCS: 36415; 58661; 81025; 85027; 86850; 86900; 86901; 88305; J0131; J0461; J1100; J1885; J2250; J2370; J2405; J2765; J3010

== ENCOUNTER → 2021-03-21 | Outpatient (REF) | payer BC ==
[~2021-03-21] MED LIST changes: +CETI10CH PO; -LIDOCAINE 1% MDV 20ML VIAL SQ PRN; +SERT50TA29 PO
== END ==
LOC: M SFHCWAGY 12:54
PROVIDERS: ATTEND Obstetrics & Gynecology
DX: R30.0 Dysuria (principal)

== ENCOUNTER → 2021-04-12 | Outpatient (REF) | payer BC | LOC: M LABDRWAD 16:30 | PROVIDERS: ATTEND Internal Medicine Endocrinology, Diabetes & Metabolism | DX: E03.9 Hypothyroidism, unspecified (principal) ==

== ENCOUNTER → 2021-05-16 | Outpatient (CLI) | payer BC ==
--- NOTE | 2021-05-16 09:24 | REP ---
INDICATION: RUQ PAIN. COMPARISON: None. TECHNIQUE: Multiple ultrasound images of the right upper quadrant of the abdomen were obtained. FINDINGS: There is an 11 mm in diameter gallstone identified. There is no gallbladder wall thickening or pericholecystic fluid. The common bile duct measures 4 mm in diameter. There is mild fatty infiltration of the liver. The liver is not grossly enlarged. There is benign fatty replacement of the pancreas. The right kidney measures 10.2 x 5.4 x 5.1 cm. IMPRESSION: 1. Cholelithiasis without evidence of cholecystitis. 2. Fatty liver infiltration. 3. Benign fatty replacement of the pancreas. <Electronically signed by Josh Canales > 05/16/21 [id number]
== END ==
LOC: M RAD 08:35
PROVIDERS: ATTEND Physician Assistant Medical
DX: R10.11 Right upper quadrant pain (principal); K76.0 Fatty (change of) liver, not elsewhere classified; K80.20 Calculus of gallbladder without cholecystitis without obstruction

== ENCOUNTER → 2021-06-13 | Outpatient (REF) | payer BC ==
[2021-06-13 13:46] LABS: FREE T4 1.05 NG/DL (0.76-1.46); THYROID STIMULATING HORMONE 4.04 uIU/ML (0.358-3.740)
== END ==
LOC: M SFHCADAM 09:44
PROVIDERS: ATTEND Physician Assistant Medical
DX: E66.01 Morbid (severe) obesity due to excess calories (principal); E03.9 Hypothyroidism, unspecified

== ENCOUNTER 2021-07-05 08:12 | Day surgery (SDC) | payer BC ==
[~2021-07-05] VITALS: Ht 175.3 cm; Wt 124.3 kg
[~2021-07-05 08:12] MED LIST changes: +BUPIVACAINE HCL 0.25% 30ML VIAL As Ordered ONE; +DICY10CA13 PO; +LR 1,000 ML IV ONE; +MELO7.5T35 PO
[2021-07-05] MEDS ORDERED: ROCURONIUM BROMIDE 50 MG/5 ML VIAL As Ordered ONE (09:03)
[2021-07-05] MEDS ORDERED: dexameTHASONE 4 MG/ML 1ML VIAL (J1100 PER 1MG) As Ordered ONE (09:03)
[2021-07-05] MEDS ORDERED: LIDOCAINE 2% 100MG/5ML SDV (FOR ANES.) As Ordered ONE (09:03)
[2021-07-05] MEDS ORDERED: METOCLOPRAMIDE INJ 10MG/2ML VIAL (J2765 PER 1) As Ordered ONE (09:03)
[2021-07-05] MEDS ORDERED: propofoL 200 MG/20 ML VIAL As Ordered ONE (09:03)
[2021-07-05] MEDS ORDERED: ONDANSETRON 4MG/2ML VIAL As Ordered ONE (09:03)
[2021-07-05] MEDS ORDERED: fentaNYL 100 MCG/2 ML INJECTION (J3010) As Ordered ONE (09:04)
[2021-07-05] MEDS ORDERED: MIDAZOLAM INJ 2MG/2ML VIAL (J2250 PER 1MG) As Ordered ONE (09:04)
[2021-07-05] MEDS ORDERED: SCOPOLAMINE 1MG TRANSDERMAL PATCH TOP ONE (09:30)
[2021-07-05] MEDS ORDERED: SUGAMMADEX SODIUM 500 MG/5 ML VIAL (BRIDION) As Ordered ONE (11:55)
[2021-07-05] MEDS ORDERED: ACETAMINOPHEN 1000MG 100ML IV BTL (OFIRMEV) (J0131 PER 10MG) As Ordered ONE (11:55)
[2021-07-05] MEDS ORDERED: KETOROLAC 60MG 2ML VIAL As Ordered ONE (11:55)
[2021-07-05] MEDS ORDERED: fentaNYL 100 MCG/2 ML INJECTION (J3010) IV PRN (13:50)
[2021-07-05] MEDS ORDERED: HYDROMORPHONE HCL 0.5 MG/ 0.5 ML SYRINGE (J1170 PER 1) IV PRN (13:50)
[2021-07-05] MEDS ORDERED: ONDANSETRON 4MG/2ML VIAL IV PRN (13:50)
[2021-07-05] MEDS ORDERED: oxyCODONE 5MG TAB PO PRN (13:50)
[2021-07-05] MEDS ORDERED: LR 1,000 ML IV SCH (13:50)
[2021-07-05] MEDS ORDERED: IBUPROFEN 800 MG TAB PO PRN (13:55)
[2021-07-05] MEDS ORDERED: ACETAMINOPHEN TAB 650MG DOSE (2X325MG) PO PRN (13:55)
[2021-07-05 14:30] VITALS: BP 118/65
== END 2021-07-05 15:45 | disposition home or self-care (01) ==
LOC: M SDC 08:12
PROVIDERS: ATTEND Surgery
DX: K80.10 Calculus of gallbladder with chronic cholecystitis without obstruction (principal); E07.9 Disorder of thyroid, unspecified; K21.9 Gastro-esophageal reflux disease without esophagitis; E66.8 Other obesity; Z79.899 Other long term (current) drug therapy; Z79.890 Hormone replacement therapy
CPT/HCPCS: 47562; 88304; J0131; J1100; J1885; J2250; J2405; J2765; J3010; S2900

== ENCOUNTER → 2021-07-19 | Outpatient (REF) | payer BC ==
[~2021-07-19] MED LIST changes: -BUPIVACAINE HCL 0.25% 30ML VIAL As Ordered ONE; -LR 1,000 ML IV ONE
== END ==
LOC: M SFHCADAM 16:02
PROVIDERS: ATTEND Physician Assistant
DX: R30.0 Dysuria (principal)

== ENCOUNTER → 2021-09-03 | Outpatient (REF) | payer BC ==
[2021-09-03 18:52] LABS: APPEARANCE, URINE HAZY (CLEAR); BACTERIA, URINE AUTO 1+ (NEGATIVE); BILIRUBIN, URINE AUTO NEGATIVE (NEGATIVE); BLOOD, URINE BLOOD 3+ (NEGATIVE); COLOR, URINE YELLOW (YELLOW); GLUCOSE, URINE (UA) AUTO NEGATIVE (NEGATIVE); KETONE, URINE AUTO NEGATIVE (NEGATIVE); LEUKOCYTE ESTERASE, URINE AUTO 3+ (NEGATIVE); MUCUS, URINE SMALL (NEGATIVE); NITRITE, URINE AUTO NEGATIVE (NEGATIVE); PROTEIN, URINE AUTO NEGATIVE (NEGATIVE); RBC, URINE AUTO 14 /HPF (0-3); SPECIFIC GRAVITY URINE AUTO 1.009 (1.002-1.035); SQUAMOUS EPITHELIAL CELL UR AU 7 /HPF (0-6); UROBILINOGEN, URINE AUTO 0.2 mg/dL (0.0-2.0); WBC, URINE AUTO 32 /HPF (0-3)
== END ==
LOC: M LAB REF 18:17
PROVIDERS: ATTEND Physician Assistant
DX: N39.0 Urinary tract infection, site not specified (principal)

== ENCOUNTER → 2021-09-13 | Outpatient (REF) | payer BC ==
[2021-09-13 15:51] LABS: GC DNA AMPLIFICATION NEGATIVE (NEGATIVE)
== END ==
LOC: M SFHCPLAZ 13:07
PROVIDERS: ATTEND Physician Assistant
DX: R30.0 Dysuria (principal); N89.8 Other specified noninflammatory disorders of vagina; R35.0 Frequency of micturition

== ENCOUNTER → 2021-09-14 | Outpatient (REF) | payer BC | LOC: M SFHCPLAZ 17:13 | PROVIDERS: ATTEND Physician Assistant | DX: R30.0 Dysuria (principal) ==

== ENCOUNTER → 2021-09-21 | Outpatient (REF) | payer BC ==
[2021-09-21 12:25] LABS: FREE T4 1.17 NG/DL (0.76-1.46); THYROID STIMULATING HORMONE 2.34 uIU/ML (0.358-3.740)
== END ==
LOC: M SFHCADAM 08:46
PROVIDERS: ATTEND Physician Assistant Medical
DX: E03.9 Hypothyroidism, unspecified (principal)

== ENCOUNTER → 2021-09-30 | Outpatient (CLI) | payer BC | LOC: M RAD 13:29 | PROVIDERS: ATTEND Physician Assistant | DX: R30.0 Dysuria (principal); R35.0 Frequency of micturition ==

== ENCOUNTER → 2021-10-03 | Outpatient (CLI) | payer BC ==
[2021-10-03 17:30] LABS: BASO # 0.1 10^3/uL (0.0-0.2); BASO % 0.7 % (0.0-1.0); EOS # 0.4 10^3/uL (0.0-0.5); EOS % 2.9 % (0.0-3.0); HEMATOCRIT 41.3 % (36.0-47.0); HEMOGLOBIN 13.2 g/dl (12.0-15.5); LYMPH # 3.1 10^3/uL (1.5-5.0); LYMPH % 24.4 % (24.0-44.0); MEAN CORPUSCULAR HEMOGLOBIN 28.6 pg (27.0-33.0); MEAN CORPUSCULAR VOLUME 89.6 fl (80.0-96.0); MONO # 1.1 10^3/uL (0.0-0.8); MONO % 8.4 % (2.0-8.0); NEUTROPHILS # 7.9 10^3/uL (1.5-8.5); NEUTROPHILS % 63.2 % (36.0-66.0); PLATELET COUNT, AUTOMATED 377 10^3/uL (150-450); RED BLOOD COUNT 4.61 10^6/uL (4.00-5.40); WHITE BLOOD COUNT 12.6 10^3/uL (4.0-10.0)
[2021-10-03 18:00] LABS: C REACTIVE PROTEIN QUANTITATIV 0.36 MG/DL (0.00-0.30)
[2021-10-03 18:08] LABS: TOTAL 25(OH) VITAMIN D 23.8 NG/ML (30.0-100.0)
[2021-10-03 18:28] LABS: ERYTHROCYTE SEDIMENTATION RATE 14 mm/hr (0-20)
== END ==
LOC: M LAB 16:27
PROVIDERS: ATTEND Nurse Practitioner Family
DX: L50.8 Other urticaria (principal)

== ENCOUNTER → 2021-10-03 | Outpatient (REF) | payer BC | LOC: M SFHCDERM 16:15 | PROVIDERS: ATTEND Nurse Practitioner Family | DX: L50.8 Other urticaria (principal); Z53.8 Procedure and treatment not carried out for other reasons ==

== ENCOUNTER → 2021-11-16 | Outpatient (CLI) | payer BC ==
[2021-11-16 16:32] LABS: BASO # 0.1 10^3/uL (0.0-0.2); BASO % 0.7 % (0.0-1.0); EOS # 0.2 10^3/uL (0.0-0.5); EOS % 1.8 % (0.0-3.0); HEMATOCRIT 41.5 % (36.0-47.0); HEMOGLOBIN 13.7 g/dl (12.0-15.5); LYMPH # 2.5 10^3/uL (1.5-5.0); LYMPH % 19.6 % (24.0-44.0); MEAN CORPUSCULAR HEMOGLOBIN 29.7 pg (27.0-33.0); MONO # 0.9 10^3/uL (0.0-0.8); MONO % 6.9 % (2.0-8.0); NEUTROPHILS # 9.1 10^3/uL (1.5-8.5); NEUTROPHILS % 70.6 % (36.0-66.0); PLATELET COUNT, AUTOMATED 378 10^3/uL (150-450); RED BLOOD COUNT 4.61 10^6/uL (4.00-5.40); WHITE BLOOD COUNT 12.9 10^3/uL (4.0-10.0)
[2021-11-16 17:04] LABS: ALBUMIN 3.4 GM/DL (3.2-5.2); ALT/SGPT 19 U/L (12-78); BILIRUBIN,TOTAL 0.3 MG/DL (0.2-1.0); BLOOD UREA NITROGEN 13 MG/DL (7-18); CALCIUM LEVEL 9.3 MG/DL (8.5-10.1); CARBON DIOXIDE LEVEL 29 MEQ/L (21-32); CHLORIDE LEVEL 106 MEQ/L (98-107); GLOMERULAR FILTRATION RATE > 60.0 (>60); GLUCOSE, FASTING 87 MG/DL (70-100); POTASSIUM SERUM 4.7 MEQ/L (3.5-5.1); RHEUMATOID FACTOR QUANT < 10.0 IU/ML (<15.0); SODIUM LEVEL 138 MEQ/L (136-145); THYROID PEROXIDASE ANTIBODY 30.4 U/ML (<60.0); TOTAL PROTEIN 7.5 GM/DL (6.4-8.2)
[2021-11-16 18:27] LABS: ERYTHROCYTE SEDIMENTATION RATE 27 mm/hr (0-20)
== END ==
LOC: M LAB 15:49
PROVIDERS: ATTEND Allergy & Immunology Allergy
DX: L50.1 Idiopathic urticaria (principal)

== ENCOUNTER → 2022-02-12 | Outpatient (CLI) | payer BC ==
[~2022-02-12] MED LIST changes: +ATIV1TAB10 PO; +EFFE150C2 PO; +XULA1DIS TOP
== END ==
LOC: M RAD 12:12
PROVIDERS: ATTEND Physician Assistant Medical
DX: M79.672 Pain in left foot (principal)

== ENCOUNTER → 2022-02-16 | Outpatient (CLI) | payer BC | LOC: M LABSMTC 09:43 | PROVIDERS: ATTEND Anesthesiology | DX: Z01.818 Encounter for other preprocedural examination (principal); Z11.52 Encounter for screening for COVID-19 ==

== ENCOUNTER 2022-02-21 12:26 | Day surgery (SDC) | payer BC ==
[~2022-02-21] VITALS: Ht 175.3 cm; Wt 126.6 kg
[~2022-02-21 12:26] MED LIST changes: +NS 1,000 ML IV ONE
[2022-02-21] MEDS ORDERED: propofoL 200 MG/20 ML VIAL As Ordered ONE ×2 (14:35→14:41)
[2022-02-21] MEDS ORDERED: LIDOCAINE 2% 100MG/5ML SDV (FOR ANES.) As Ordered ONE (14:35)
[2022-02-21] MEDS ORDERED: fentaNYL 100 MCG/2 ML INJECTION As Ordered ONE (14:35)
[2022-02-21 15:01] VITALS: BP 124/70
== END 2022-02-21 15:11 | disposition home or self-care (01) ==
LOC: M OPP 12:26
PROVIDERS: ATTEND Internal Medicine Gastroenterology
DX: K29.60 Other gastritis without bleeding (principal); Z79.1 Long term (current) use of non-steroidal anti-inflammatories (NSAID); Z79.3 Long term (current) use of hormonal contraceptives; Z79.899 Other long term (current) drug therapy; E03.9 Hypothyroidism, unspecified; F32.9 Major depressive disorder, single episode, unspecified; F41.9 Anxiety disorder, unspecified; G43.839 Menstrual migraine, intractable, without status migrainosus
CPT/HCPCS: 43239; 88305; J3010

== ENCOUNTER → 2022-03-15 | Outpatient (REF) | payer BC ==
[~2022-03-15] MED LIST changes: -NS 1,000 ML IV ONE
[2022-03-15 13:16] LABS: BASO # 0.1 10^3/uL (0.0-0.2); BASO % 0.8 % (0.0-1.0); EOS # 0.2 10^3/uL (0.0-0.5); EOS % 2.5 % (0.0-3.0); HEMATOCRIT 42.1 % (36.0-47.0); HEMOGLOBIN 13.8 g/dl (12.0-15.5); LYMPH % 22.8 % (24.0-44.0); MEAN CORPUSCULAR HEMOGLOBIN 29.9 pg (27.0-33.0); MEAN CORPUSCULAR HGB CONC 32.8 g/dl (32.0-36.5); MEAN CORPUSCULAR VOLUME 91.3 fl (80.0-96.0); MONO # 0.6 10^3/uL (0.0-0.8); MONO % 7.2 % (2.0-8.0); NEUTROPHILS # 5.9 10^3/uL (1.5-8.5); NEUTROPHILS % 66.4 % (36.0-66.0); PLATELET COUNT, AUTOMATED 359 10^3/uL (150-450); RED BLOOD COUNT 4.61 10^6/uL (4.00-5.40); WHITE BLOOD COUNT 8.9 10^3/uL (4.0-10.0)
[2022-03-15 14:28] LABS: ALBUMIN 3.3 GM/DL (3.2-5.2); ALT/SGPT 16 U/L (12-78); BILIRUBIN,TOTAL 0.5 MG/DL (0.2-1.0); BLOOD UREA NITROGEN 10 MG/DL (7-18); CARBON DIOXIDE LEVEL 26 MEQ/L (21-32); CHLORIDE LEVEL 108 MEQ/L (98-107); CHOLESTEROL LEVEL 211 MG/DL (<200); CHOLESTEROL RISK RATIO 5.023 (<5); CREATININE FOR GFR 0.77 MG/DL (0.55-1.30); GLOMERULAR FILTRATION RATE > 60.0 (>60); GLUCOSE, FASTING 92 MG/DL (70-100); HDL CHOLESTEROL 42 MG/DL (>40); LDL CHOLESTEROL 133 MG/DL (<100); NON-HDL-C 169 MG/DL; POTASSIUM SERUM 4.1 MEQ/L (3.5-5.1); SODIUM LEVEL 139 MEQ/L (136-145); TOTAL PROTEIN 7.2 GM/DL (6.4-8.2); TRIGLYCERIDES LEVEL 181 MG/DL (<150)
[2022-03-15 21:57] LABS: TOTAL 25(OH) VITAMIN D 29.2 NG/ML (30.0-100.0)
== END ==
LOC: M SFHCADAM 07:36
PROVIDERS: ATTEND Physician Assistant Medical
DX: F41.1 Generalized anxiety disorder (principal); E55.9 Vitamin D deficiency, unspecified; E03.9 Hypothyroidism, unspecified; Z23 Encounter for immunization

== ENCOUNTER → 2022-03-20 | Outpatient (REF) | payer BC ==
[2022-03-21 12:49] LABS: APPEARANCE, URINE MANUAL HAZY (CLEAR); COLOR, URINE MANUAL PINK (YELLOW)
[2022-03-21 12:50] LABS: BILIRUBIN, URINE MANUAL NEGATIVE (NEGATIVE); BLOOD URINE MANUAL POSITIVE (NEGATIVE); GLUCOSE, URINE (UA) MANUAL NEGATIVE (NEGATIVE); KETONE, URINE MANUAL NEGATIVE (NEGATIVE); LEUKOCYTE ESTERASE, URINE MAN POSITIVE (NEGATIVE); NITRITE, URINE MANUAL NEGATIVE (NEGATIVE); PROTEIN, URINE MANUAL 1+ mg/dL (NEGATIVE); UROBILINOGEN, URINE MANUAL NORMAL (NORMAL)
[2022-03-21 13:06] LABS: BACTERIA, URINE LARGE AMOUNT; RBC, URINE TNTC /hpf (0-3); SQUAMOUS EPITHELIAL CELL URINE LARGE AMOUNT /hpf (SMALL AMT)
[2022-03-21 13:08] LABS: HYALINE CAST, URINE NONE SEEN /lpf (0-1)
[2022-03-21 13:09] LABS: AMORPHOUS SEDIMENT, URINE SMALL AMOUNT (NEGATIVE)
== END ==
LOC: M SFHCADAM 12:38
PROVIDERS: ATTEND Physician Assistant Medical
DX: R30.0 Dysuria (principal)

== ENCOUNTER → 2022-05-01 | Outpatient (REF) | payer BC ==
[2022-05-01 21:42] LABS: APPEARANCE, URINE MANUAL CLEAR (CLEAR); COLOR, URINE MANUAL ORANGE (YELLOW); PH,URINE MAN OBSCURED UNITS (5.0 - 7.0)
[2022-05-01 21:43] LABS: BILIRUBIN, URINE MANUAL OBSCURED (NEGATIVE); BLOOD URINE MANUAL NEGATIVE (NEGATIVE); GLUCOSE, URINE (UA) MANUAL NEGATIVE (NEGATIVE); KETONE, URINE MANUAL OBSCURED mg/dL (NEGATIVE); LEUKOCYTE ESTERASE, URINE MAN OBSCURED (NEGATIVE); NITRITE, URINE MANUAL OBSCURED (NEGATIVE); PROTEIN, URINE MANUAL OBSCURED mg/dL (NEGATIVE); SPECIFIC GRAVITY,URINE MANUAL 1.025 (1.002-1.035); UROBILINOGEN, URINE MANUAL OBSCURED mg/dl (NORMAL)
[2022-05-01 22:12] LABS: RBC, URINE 0-1 /hpf (0-3)
[2022-05-01 22:13] LABS: BACTERIA, URINE MOD AMOUNT; HYALINE CAST, URINE NONE SEEN /lpf (0-1); SQUAMOUS EPITHELIAL CELL URINE LARGE AMOUNT /hpf (SMALL AMT)
== END ==
LOC: M LAB REF 21:28
PROVIDERS: ATTEND Physician Assistant Medical
DX: N39.0 Urinary tract infection, site not specified (principal)

== ENCOUNTER → 2022-06-28 | Outpatient (REF) | payer BC ==
[2022-06-28 12:06] LABS: APPEARANCE, URINE MANUAL CLOUDY (CLEAR); COLOR, URINE MANUAL DK YELLOW (YELLOW)
[2022-06-28 12:07] LABS: SPECIFIC GRAVITY,URINE MANUAL 1.025 (1.002-1.035)
[2022-06-28 12:08] LABS: BILIRUBIN, URINE MANUAL NEGATIVE (NEGATIVE); GLUCOSE, URINE (UA) MANUAL NEGATIVE (NEGATIVE); KETONE, URINE MANUAL NEGATIVE (NEGATIVE); PROTEIN, URINE MANUAL TRACE mg/dL (NEGATIVE); UROBILINOGEN, URINE MANUAL NORMAL (NORMAL)
[2022-06-28 12:09] LABS: BLOOD URINE MANUAL TRACE (NEGATIVE); LEUKOCYTE ESTERASE, URINE MAN POSITIVE (NEGATIVE); NITRITE, URINE MANUAL POSITIVE (NEGATIVE)
[2022-06-28 12:26] LABS: SQUAMOUS EPITHELIAL CELL URINE LARGE AMOUNT /hpf (SMALL AMT); WBC, URINE TNTC /hpf (0-3)
[2022-06-28 12:27] LABS: BACTERIA, URINE LARGE AMOUNT; HYALINE CAST, URINE NONE SEEN /lpf (0-1)
== END ==
LOC: M LAB REF 11:31
PROVIDERS: ATTEND Physician Assistant Medical
DX: N39.0 Urinary tract infection, site not specified (principal)

== ENCOUNTER → 2022-07-28 | Outpatient (CLI) | payer BC | LOC: M ADAMS 15:12 | PROVIDERS: ATTEND Physician Assistant Medical | DX: M54.50 Low back pain, unspecified (principal) ==

== ENCOUNTER → 2022-08-27 | Outpatient (REF) | payer BC ==
[2022-08-27 14:54] LABS: APPEARANCE, URINE HAZY (CLEAR); BACTERIA, URINE AUTO 1+ (NEGATIVE); BILIRUBIN, URINE AUTO 1+ (NEGATIVE); BLOOD, URINE BLOOD NEGATIVE (NEGATIVE); CALCIUM OXALATE CRYSTALS LARGE; COLOR, URINE AMBER (YELLOW); GLUCOSE, URINE (UA) AUTO NEGATIVE (NEGATIVE); KETONE, URINE AUTO TRACE mg/dL (NEGATIVE); LEUKOCYTE ESTERASE, URINE AUTO 2+ (NEGATIVE); MUCUS, URINE SMALL (NEGATIVE); NITRITE, URINE AUTO POSITIVE (NEGATIVE); PROTEIN, URINE AUTO 1+ mg/dL (NEGATIVE); RBC, URINE AUTO 3 /HPF (0-3); SPECIFIC GRAVITY URINE AUTO 1.033 (1.002-1.035); SQUAMOUS EPITHELIAL CELL UR AU 9 /HPF (0-6); WBC, URINE AUTO 10 /HPF (0-3)
== END ==
LOC: M LAB REF 14:33
PROVIDERS: ATTEND Physician Assistant Medical
DX: N39.0 Urinary tract infection, site not specified (principal)

== ENCOUNTER → 2022-08-29 | Outpatient (REF) | payer BC | LOC: M SFHCADAM 16:17 | PROVIDERS: ATTEND Family Medicine | DX: R30.0 Dysuria (principal) ==

== ENCOUNTER 2022-09-10 19:45 | Emergency (ER) | payer BC ==
[~2022-09-10] VITALS: Ht 175.3 cm; Wt 128.4 kg
[2022-09-10] MEDS ORDERED: KETOROLAC 30 MG/ML 1ML VIAL IV ONE (21:15)
[2022-09-10] MEDS ORDERED: NS 1,000 ML IV ONE (21:15)
[2022-09-10 21:43] LABS: BASO # 0.1 10^3/uL (0.0-0.2); BASO % 0.7 % (0.0-1.0); EOS # 0.2 10^3/uL (0.0-0.5); EOS % 2.1 % (0.0-3.0); HEMATOCRIT 41.8 % (36.0-47.0); HEMOGLOBIN 13.5 g/dl (12.0-15.5); LYMPH # 3.1 10^3/uL (1.5-5.0); LYMPH % 26.6 % (24.0-44.0); MEAN CORPUSCULAR HEMOGLOBIN 28.6 pg (27.0-33.0); MEAN CORPUSCULAR HGB CONC 32.3 g/dl (32.0-36.5); MEAN CORPUSCULAR VOLUME 88.6 fl (80.0-96.0); MONO # 0.9 10^3/uL (0.0-0.8); MONO % 7.6 % (2.0-8.0); NEUTROPHILS # 7.3 10^3/uL (1.5-8.5); NEUTROPHILS % 62.5 % (36.0-66.0); PLATELET COUNT, AUTOMATED 424 10^3/uL (150-450); RED BLOOD COUNT 4.72 10^6/uL (4.00-5.40); WHITE BLOOD COUNT 11.6 10^3/uL (4.0-10.0)
[2022-09-10] MEDS ORDERED: cefTRIAXone SOD 1 GM in D5W MINI-BAG PLUS 50 ML IV ONE (23:15)
[2022-09-10] MEDS ORDERED: CIPR-249 PO (23:59)
[2022-09-11 00:10] VITALS: BP 124/68
== END 2022-09-11 01:14 | disposition home or self-care (01) ==
LOC: M ED 19:45
DX: N83.291 Other ovarian cyst, right side (principal); N39.0 Urinary tract infection, site not specified; K21.9 Gastro-esophageal reflux disease without esophagitis; F32.A Depression, unspecified; F41.9 Anxiety disorder, unspecified; E03.9 Hypothyroidism, unspecified; R51.9 Headache, unspecified
CPT/HCPCS: 74176; 80047; 81001; 84702; 85025; 87086; 96365; 96375; 99284; J0696; J1885

== ENCOUNTER 2022-11-08 08:55 | Emergency (ER) | payer BC ==
[~2022-11-08] VITALS: Ht 175.3 cm; Wt 126.1 kg
[2022-11-08] MEDS ORDERED: NS 1,000 ML IV ONE (09:50)
[2022-11-08 10:25] LABS: BASO # 0.1 10^3/uL (0.0-0.2); BASO % 0.7 % (0.0-1.0); EOS # 0.1 10^3/uL (0.0-0.5); EOS % 1.9 % (0.0-3.0); HEMOGLOBIN 14.2 g/dl (12.0-15.5); LYMPH # 1.6 10^3/uL (1.5-5.0); LYMPH % 22.9 % (24.0-44.0); MEAN CORPUSCULAR HEMOGLOBIN 28.9 pg (27.0-33.0); MEAN CORPUSCULAR VOLUME 87.4 fl (80.0-96.0); MONO # 0.8 10^3/uL (0.0-0.8); MONO % 11.6 % (2.0-8.0); NEUTROPHILS # 4.4 10^3/uL (1.5-8.5); NEUTROPHILS % 62.6 % (36.0-66.0); PLATELET COUNT, AUTOMATED 346 10^3/uL (150-450); RED BLOOD COUNT 4.92 10^6/uL (4.00-5.40)
[2022-11-08 10:54] LABS: HCG, SERUM QUALITATIVE NEGATIVE (NEGATIVE); LIPASE 25 U/L (12-53)
[2022-11-08 10:56] LABS: ALBUMIN 3.6 G/DL (3.2-5.2); ALKALINE PHOSPHATASE 64 U/L (46-116); ALT/SGPT 21 U/L (7.0-40); AST/SGOT 24 U/L (<34); BILIRUBIN,DIRECT 0.1 MG/DL (<0.4); BILIRUBIN,TOTAL 0.3 MG/DL (0.3-1.2); BLOOD UREA NITROGEN 10 MG/DL (9-23); CALCIUM LEVEL 8.4 MG/DL (8.5-10.1); CARBON DIOXIDE LEVEL 26 MMOL/L (20-31); CHLORIDE LEVEL 105 MMOL/L (98-107); CREATININE FOR GFR 0.78 MG/DL (0.55-1.30); GLOMERULAR FILTRATION RATE > 60.0 (>60); GLUCOSE, FASTING 95 MG/DL (60-100); SODIUM LEVEL 140 MMOL/L (136-145); TOTAL PROTEIN 7.1 G/DL (5.7-8.2)
[2022-11-08] MEDS ORDERED: AMOX875T2 PO (11:07)
[2022-11-08 11:15] VITALS: BP 134/76
== END 2022-11-08 12:17 | disposition home or self-care (01) ==
LOC: M ED 08:55
DX: J02.0 Streptococcal pharyngitis (principal); N83.209 Unspecified ovarian cyst, unspecified side; Z79.899 Other long term (current) drug therapy

== ENCOUNTER → 2023-01-11 | Outpatient (REF) | payer BC ==
[~2023-01-11] MED LIST changes: +AMOX875T2 PO; +DICY-61 PO; -DICY10CA13 PO
== END ==
LOC: M SFHCWAGY 09:54
PROVIDERS: ATTEND Obstetrics & Gynecology
DX: Z12.4 Encounter for screening for malignant neoplasm of cervix (principal)
CPT/HCPCS: 87624; G0123

== ENCOUNTER → 2023-03-30 | Outpatient (REF) | payer BC | LOC: M SFHCADAM 14:05 | PROVIDERS: ATTEND Physician Assistant Medical | DX: E03.9 Hypothyroidism, unspecified (principal); E55.9 Vitamin D deficiency, unspecified ==

== ENCOUNTER 2023-06-28 12:27 | Emergency (ER) | payer BC ==
[~2023-06-28] VITALS: Ht 177.8 cm; Wt 131.7 kg
[~2023-06-28 12:27] MED LIST changes: -EFFE150C2 PO; +EFFE150C3 PO
[2023-06-28] MEDS ORDERED: CETI-24 (12:54)
[2023-06-28] MEDS ORDERED: DICY-61 (12:54)
[2023-06-28] MEDS ORDERED: VITA200016 (12:54)
[2023-06-28] MEDS ORDERED: XOLA75IN SC (12:54)
[2023-06-28] MEDS ORDERED: ESOM40CA35 (12:54)
[2023-06-28] MEDS ORDERED: GABA-282 (12:54)
[2023-06-28] MEDS ORDERED: ONDANSETRON 4MG 2ML VIAL IV ONE (14:10)
[2023-06-28] MEDS ORDERED: KETOROLAC 30 MG/ML 1ML VIAL IV ONE (14:10)
[2023-06-28 14:16] LABS: HEMATOCRIT 43.8 % (36.0-47.0); HEMOGLOBIN 14.4 g/dl (12.0-15.5); MEAN CORPUSCULAR HEMOGLOBIN 29.5 pg (27.0-33.0); MEAN CORPUSCULAR HGB CONC 32.9 g/dl (32.0-36.5); MEAN CORPUSCULAR VOLUME 89.8 fl (80.0-96.0); PLATELET COUNT, AUTOMATED 309 10^3/uL (150-450); RED BLOOD COUNT 4.88 10^6/uL (4.00-5.40); WHITE BLOOD COUNT 10.1 10^3/uL (4.0-10.0)
[2023-06-28 14:30] LABS: INR 1.12; PARTIAL THROMBOPLASTIN TIME 27.8 SECONDS (24.8-34.2); PROTHROMBIN TIME 14.1 SECONDS (12.5-14.5)
[2023-06-28 14:36] LABS: LIPASE 28 U/L (12-53)
[2023-06-28 14:38] LABS: ALBUMIN 3.5 G/DL (3.2-5.2); ALKALINE PHOSPHATASE 61 U/L (46-116); ALT/SGPT 93 U/L (7.0-40); AMYLASE 53 U/L (30-118); AST/SGOT 53 U/L (<34); BILIRUBIN,DIRECT 0.1 MG/DL (<0.4); BILIRUBIN,TOTAL 0.6 MG/DL (0.3-1.2); TOTAL PROTEIN 7.2 G/DL (5.7-8.2)
[2023-06-28 14:42] LABS: ATYPICAL LYMPH 47 % (0-5); BASOPHILS 1 % (0-1); EOSINOPHILS 2 % (0-3); LYMPHOCYTES 5 % (16-44); MONOCYTES 9 % (0-5); NEUTROPHILS 36 % (28-66)
[2023-06-28 14:43] LABS: PLATELET ESTIMATE NORMAL (NORMAL)
[2023-06-28 14:50] LABS: HCG, SERUM QUALITATIVE NEGATIVE (NEGATIVE)
[2023-06-28] MEDS ORDERED: ISOVUE-370 76% 100ML VIAL As Ordered ONE (14:53)
[2023-06-28 15:34] LABS: MONO REFLEX EBV COMP NEGATIVE (NEGATIVE)
[2023-06-28 16:12] VITALS: BP 116/62; TEMP 96.9; O2SAT 98
[2023-06-30 16:11] LABS: EBV AB TO NUCLEAR ANTIGEN 57.8 U/mL (0.0-17.9); EBV VIRAL CAPSID AG IgG 92.5 U/mL (0.0-17.9); EBV VIRAL CAPSID AG IgM <36.0 U/mL (0.0-35.9)
== END 2023-06-28 16:17 | disposition home or self-care (01) ==
LOC: M ED 12:27
DX: A09 Infectious gastroenteritis and colitis, unspecified (principal); Z79.899 Other long term (current) drug therapy
CPT/HCPCS: 36415; 74177; 80047; 80076; 81000; 81015; 82150; 83605; 83690; 84703; 85025; 85610; 85730; 86308; 86664; 86665; 87086; 96374; 96375; 99284; J1885; J2405; Q9967

== ENCOUNTER → 2023-07-16 | Outpatient (CLI) | payer BC ==
[~2023-07-16] MED LIST changes: +CETI-24; +DICY-61; +ESOM40CA35; +GABA-282; +VITA200016; +XOLA75IN SC
== END ==
LOC: M RAD 15:21
PROVIDERS: ATTEND Obstetrics & Gynecology
DX: N83.01 Follicular cyst of right ovary (principal)

== ENCOUNTER → 2023-09-23 | Outpatient (REF) | payer BC | LOC: M LAB 18:12 | PROVIDERS: ATTEND Physician Assistant Medical | DX: R07.0 Pain in throat (principal) ==

== ENCOUNTER → 2023-12-17 | Outpatient (REF) | payer BC ==
[2023-12-17 21:39] LABS: APPEARANCE, URINE HAZY (CLEAR); BACTERIA, URINE AUTO 1+ (NEGATIVE); BILIRUBIN, URINE AUTO NEGATIVE (NEGATIVE); BLOOD, URINE BLOOD 1+ (NEGATIVE); COLOR, URINE AMBER (YELLOW); GLUCOSE, URINE (UA) AUTO NEGATIVE (NEGATIVE); KETONE, URINE AUTO NEGATIVE (NEGATIVE); LEUKOCYTE ESTERASE, URINE AUTO 3+ (NEGATIVE); MUCUS, URINE SMALL (NEGATIVE); NITRITE, URINE AUTO POSITIVE (NEGATIVE); PROTEIN, URINE AUTO NEGATIVE (NEGATIVE); RBC, URINE AUTO 2 /HPF (0-3); SPECIFIC GRAVITY URINE AUTO 1.014 (1.002-1.035); SQUAMOUS EPITHELIAL CELL UR AU 16 /HPF (0-6); WBC, URINE AUTO 8 /HPF (0-3)
== END ==
LOC: M LAB REF 20:42
PROVIDERS: ATTEND Physician Assistant
DX: N39.0 Urinary tract infection, site not specified (principal)

== ENCOUNTER → 2024-01-18 | Outpatient (REF) | payer BC | LOC: M LAB REF 20:08 | PROVIDERS: ATTEND Physician Assistant | DX: J02.9 Acute pharyngitis, unspecified (principal) ==

== ENCOUNTER → 2024-04-05 | Outpatient (CLI) | payer BC ==
[~2024-04-05] MED LIST changes: +GABA-1172; -GABA-282
[2024-04-05 10:55] LABS: BASO # 0.1 10^3/uL (0.0-0.2); BASO % 0.7 % (0.0-1.0); EOS # 0.2 10^3/uL (0.0-0.5); EOS % 2.2 % (0.0-3.0); HEMATOCRIT 43.2 % (36.0-47.0); HEMOGLOBIN 14.1 g/dl (12.0-15.5); LYMPH # 3.2 10^3/uL (1.5-5.0); LYMPH % 38.9 % (24.0-44.0); MEAN CORPUSCULAR HEMOGLOBIN 29.5 pg (27.0-33.0); MEAN CORPUSCULAR HGB CONC 32.6 g/dl (32.0-36.5); MEAN CORPUSCULAR VOLUME 90.4 fl (80.0-96.0); MONO # 0.7 10^3/uL (0.0-0.8); MONO % 8.1 % (2.0-8.0); NEUTROPHILS # 4.1 10^3/uL (1.5-8.5); NEUTROPHILS % 49.5 % (36.0-66.0); PLATELET COUNT, AUTOMATED 355 10^3/uL (150-450); RED BLOOD COUNT 4.78 10^6/uL (4.00-5.40); WHITE BLOOD COUNT 8.2 10^3/uL (4.0-10.0)
[2024-04-05 11:18] LABS: ALBUMIN 3.3 G/DL (3.2-5.2); ALKALINE PHOSPHATASE 56 U/L (35-104); ALT/SGPT 18 U/L (7.0-40); AST/SGOT 12 U/L (<34); BILIRUBIN,TOTAL 0.8 MG/DL (0.3-1.2); BLOOD UREA NITROGEN 9 MG/DL (9-23); CALCIUM LEVEL 9.4 MG/DL (8.5-10.1); CARBON DIOXIDE LEVEL 27 MMOL/L (20-31); CHLORIDE LEVEL 109 MMOL/L (98-107); CHOLESTEROL LEVEL 201 MG/DL (<200); CHOLESTEROL RISK RATIO 5.02 (<5); GLOMERULAR FILTRATION RATE > 60.0 (>60); GLUCOSE, FASTING 97 MG/DL (60-100); LDL CHOLESTEROL 143.8 MG/DL (<100); POTASSIUM SERUM 4.4 MMOL/L (3.5-5.1); SODIUM LEVEL 140 MMOL/L (136-145); TOTAL 25(OH) VITAMIN D 29.2 NG/ML (20.0-100.0); TOTAL PROTEIN 6.9 G/DL (5.7-8.2); TRIGLYCERIDES LEVEL 86 MG/DL (<150)
== END ==
LOC: M LAB 10:16
PROVIDERS: ATTEND Physician Assistant Medical
DX: K21.9 Gastro-esophageal reflux disease without esophagitis (principal); E66.01 Morbid (severe) obesity due to excess calories; E03.9 Hypothyroidism, unspecified; E55.9 Vitamin D deficiency, unspecified; F41.1 Generalized anxiety disorder

== ENCOUNTER → 2024-07-11 | Outpatient (REF) | payer BC | LOC: M LAB REF 20:57 | PROVIDERS: ATTEND Physician Assistant | DX: B34.9 Viral infection, unspecified (principal) ==

== ENCOUNTER → 2025-02-08 | Outpatient (CLI) | payer OTHER ==
[2025-02-08 15:57] LABS: FREE T4 1.22 NG/DL (0.89-1.76)
== END ==
LOC: M RAD 14:54
PROVIDERS: ATTEND Physician Assistant Medical
DX: R05.3 Chronic cough (principal); E03.9 Hypothyroidism, unspecified

== ENCOUNTER → 2025-04-06 | Outpatient (REF) | payer OTHER ==
[2025-04-06 13:44] LABS: PLATELET COUNT, AUTOMATED 382 10^3/uL (150-450)
[2025-04-06 13:46] LABS: ALT/SGPT 15 U/L (7.0-40); AST/SGOT 12 U/L (<34); CALCIUM LEVEL 9.1 MG/DL (8.5-10.1); CARBON DIOXIDE LEVEL 29 MMOL/L (20-31); CHLORIDE LEVEL 104 MMOL/L (98-107); CHOLESTEROL LEVEL 189 MG/DL (<200); CHOLESTEROL RISK RATIO 4.09 (<5); CREATININE FOR GFR 0.83 MG/DL (0.55-1.30); GLOMERULAR FILTRATION RATE > 90.0 (>60); LDL CHOLESTEROL 120.5 MG/DL (<100); NON-HDL-C 142.9 MG/DL; POTASSIUM SERUM 4.3 MMOL/L (3.5-5.1); SODIUM LEVEL 143 MMOL/L (136-145); TRIGLYCERIDES LEVEL 112 MG/DL (<150)
[2025-04-06 13:47] LABS: TOTAL 25(OH) VITAMIN D 25.4 NG/ML (20.0-100.0)
== END ==
LOC: M SFHCADAM 07:54
PROVIDERS: ATTEND Physician Assistant Medical
DX: K21.9 Gastro-esophageal reflux disease without esophagitis (principal); E66.01 Morbid (severe) obesity due to excess calories; E03.9 Hypothyroidism, unspecified; E55.9 Vitamin D deficiency, unspecified; F41.1 Generalized anxiety disorder

== ENCOUNTER 2025-05-21 07:45 | Emergency (ER) | payer OTHER ==
[~2025-05-21] VITALS: Ht 177.8 cm; Wt 127.0 kg
[2025-05-21] MEDS ORDERED: VENL75CA47 (07:55)
[2025-05-21] MEDS ORDERED: SYNT100T (07:55)
[2025-05-21] MEDS ORDERED: VENL37.598 (07:55)
[2025-05-21 08:16] LABS: BASO # 0.1 10^3/uL (0.0-0.2); BASO % 0.7 % (0.0-1.0); EOS # 0.2 10^3/uL (0.0-0.5); EOS % 2.6 % (0.0-3.0); LYMPH # 3.1 10^3/uL (1.5-5.0); LYMPH % 36.5 % (24.0-44.0); MONO # 0.6 10^3/uL (0.0-0.8); MONO % 6.5 % (2.0-8.0); NEUTROPHILS # 4.6 10^3/uL (1.5-8.5); NEUTROPHILS % 53.3 % (36.0-66.0); PLATELET COUNT, AUTOMATED 340 10^3/uL (150-450)
[2025-05-21 08:50] LABS: CALCIUM LEVEL 8.6 MG/DL (8.5-10.1); CARBON DIOXIDE LEVEL 26 MMOL/L (20-31); CHLORIDE LEVEL 105 MMOL/L (98-107); CREATININE FOR GFR 0.82 MG/DL (0.55-1.30); GLOMERULAR FILTRATION RATE > 90.0 (>60); POTASSIUM SERUM 3.9 MMOL/L (3.5-5.1); SODIUM LEVEL 139 MMOL/L (136-145)
[2025-05-21 09:02] LABS: KETONE, URINE AUTO RFX NEGATIVE (NEGATIVE); MUCUS, URINE RFX SMALL (NEGATIVE); NITRITE, URINE AUTO RFX NEGATIVE (NEGATIVE); RBC, URINE AUTO RFX 8 /HPF (0-3); SQUAM EPITHELIAL CELL UR AURFX 11 /HPF (0-6)
[2025-05-21 09:03] LABS: LEUKOCYTE ESTERASE UR AUTO RFX 3+ (NEGATIVE); WBC, URINE AUTO RFX 24 /HPF (0-3)
[2025-05-21 09:04] LABS: HCG, SERUM QUALITATIVE NEGATIVE (NEGATIVE)
[2025-05-21 11:07] LABS: ALT/SGPT 15 U/L (7.0-40); AST/SGOT 12 U/L (<34)
[2025-05-21] MEDS ORDERED: CEFD1CAP9 PO (12:58)
[2025-05-21 13:05] VITALS: BP 126/69; TEMP 97.5; O2SAT 99
== END 2025-05-21 13:08 | disposition home or self-care (01) ==
LOC: M ED 07:45
DX: N39.0 Urinary tract infection, site not specified (principal); E03.9 Hypothyroidism, unspecified; F41.9 Anxiety disorder, unspecified; Z79.899 Other long term (current) drug therapy